=== PATIENT | male | born 1990 | race Caucasian/White ===

== ENCOUNTER 2022-04-03 14:24 | Emergency (ER) | payer MEDICAID ==
[2022-04-03 14:43] VITALS: BP 156/84; PULSE 65; RESP 18; TEMP 98.2
--- NOTE | 2022-04-03 15:28 | US ---
EXAMINATION TYPE: US scrotum with doppler. Grayscale and color Doppler Duplex imaging performed of jacob michael scrotum. DATE OF EXAM: 04/03/2022 COMPARISON: NONE CLINICAL HISTORY: right testicle pain. right testicle pain on and off for years only after intercours e, extreme pain today after sex EXAM MEASUREMENTS: TESTICLES: Right Testicle: 4.4 x 2.8 x 2.4cm cm, heterogeneous appearance lateral to the testicle with no foca l lesion within the serpiginous structure Left Testicle: 4.1 x 2.6 x 2.2 cm EPIDIDYMIS HEAD: Right Epididymis: 1.6 cm, enlarged epi seen from head to tail with increased vascularity Left Epididymis: 1.0 cm, cyst seen =0.9 x 0.9 x 0.9cm Doppler performed to assess for testicular vascularity; Bilateral color flow and waveforms are seen. There is no evidence of testicular torsion. Presence of hydroceles: no Presence of varicoceles: no Testicular echotexture is homogenous and symmetric. IMPRESSION: Consistent with epididymitis on the right. There is no evident intratesticular mass.
[2022-04-03] MEDS ORDERED: LEVOFLOXACIN 500 MG TAB PO STA (17:06)
[2022-04-03] MEDS ORDERED: cefTRIAXone 250 MG VIAL IM STA (17:06)
--- NOTE | 2022-04-03 17:09 | ED ---
General Adult HPI - General Chief complaint: Urogenital Stated complaint: Groin Pain, Swollen testicle Time Seen by Provider: 04/03/22 16:50 Source: patient, RN notes reviewed, old records reviewed Mode of arrival: ambulatory Limitations: no limitations - History of Present Illness Initial comments: Patient is a 31-year-old male who presents emergency Department complaining of right-sided testicular pain. Patient states that the pain started this morning and progressively gotten worse. Improves with elevation and support of the testicle. This has happened previously, however the pain is worse today. Denies any rashes or skin changes. Patient is and has had one sexual partner with no history of STI's. Patient been for 8 years. Denies any urethral discharge. Denies any abdominal pain, fevers, chest pain, shortness breath. No other acute complaints at this time. Presents for further evaluation.Describes the pain is more or less constant with no intermittence. - Related Data Previous Rx's Medication Instructions Recorded levoFLOXacin 500 mg PO DAILY 10 Days #10 tablet 04/03/22 Allergies Allergy/AdvReac Type Severity Reaction Status Date / Time No Known Allergies Allergy Verified 04/03/22 14:41 Review of Systems ROS Statement: Those systems with pertinent positive or pertinent negative responses have been documented in the HPI. Review of Systems: CONST: Denies fever EYES: Denies blurry vision ENT: Denies nasal congestion C/V: Denies Chest pain RESP: Denies shortness of breath GI: Denies abdominal pain : Endorses right testicular pain. SKIN: Denies rash. MSK: Denies joint pain. NEURO: Denies headache ROS Other: All systems not noted in ROS Statement are negative. Past Medical History Past Medical History: No Reported History History of Any Multi-Drug Resistant Organisms: None Reported Past Surgical History: No Surgical Hx Reported Past Psychological History: No Psychological Hx Reported Smoking Status: Current every day smoker Past Alcohol Use History: None Reported Past Drug Use History: None Reported General Exam - General Exam Comments Initial Comments: General: Appears in no acute distress. HEAD: Normal with no signs of head trauma. EYES: EOMI ENT: Hearing grossly intact. RESPIRATORY: Clear breath sounds bilaterally. No wheezes, rales, or rhonchi. C/V: Regular rate and rhythm. S1 and S2 auscultated, no edema, peripheral pulses 2+ and intact throughout ABD: Abd is soft, nontender, nondistended : Testicular exam was relatively unremarkable except for mild tenderness to palpation in the right testicle. No obvious masses palpated. Left testicle exam is unremarkable. No urethral discharge. No rashes. No skin changes. No signs of hernia on exam. EXT: Normal range of motion, no obvious deformity SKIN: No rashes or lesions observed on exposed skin. NEURO: Alert and oriented 4. Limitations: no limitations Course Vital Signs 04/03/22 14:42 Temperature 98.2 F Pulse Rate 65 Respiratory 18 Rate Blood Pressure 156/84 O2 Sat by Pulse 98 Oximetry Medical Decision Making - Medical Decision Making Based on the patient's presentation and physical exam, and concern for epididymitis. Ultrasound was obtained while the patient was waiting in triage. OF THE SCROTUM DID REVEAL FINDINGS CONSISTENT FOR RIGHT-SIDED EPIDIDYMITIS WITH NO MASS AND NO SIGNS OF TORSION.I discussed results with the patient. He expressed understanding. As management does not change based on urinalysis, and low suspicion for STI involvement, we will administer antibiotics the patient can be discharged home with urology follow-up at this time. He was in agreement this plan. He'll be given a dose of IM Rocephin as well as a prescription for levofloxacin outpatient. He'll receive a dose prior to discharge. He was in agreement this plan. Strict return precautions were provided. Patient can use [id number] pain medications for acute pain. Vital signs remained within normal limits and stable throughout his stay. I will provide the patient with a prescription for levofloxacin 500 mg daily for 10 days. I instructed the patient to follow up with their PCP in the next 3 da ys. I provided contact information for follow up with urology. I explained that the patient should return to the emergency department if they experience any worsening symptoms. Strict return precautions were discussed with the patient. The patient expressed understanding of these instructions. I answered all questions that the patient had. The patient was discharged home in good condition with their prescriptions and follow up information. Disposition Clinical Impression: Epididymitis Disposition: HOME SELF-CARE Condition: Good Instructions (If sedation given, give patient instructions): Epididymitis (ED) Prescriptions: levoFLOXacin 500 mg PO DAILY 10 Days #10 tablet Is patient prescribed a controlled substance at d/c from ED?: No Referrals: Sonia Saavedra, [Primary Care Provider] - 1-2 days Spencer Vilchis MD [STAFF PHYSICIAN] - 1-2 days Time of Disposition: 17:05
== END 2022-04-03 17:30 | disposition home or self-care (01) ==
LOC: EC 14:24
DX: N45.1 Epididymitis (principal); F17.200 Nicotine dependence, unspecified, uncomplicated
CPT/HCPCS: 93975; 76870; 99284; 96372; J0696

== ENCOUNTER → 2022-11-08 | Outpatient (CLI) | payer MEDICAID ==
--- NOTE | 2022-11-10 11:27 | MR ---
EXAMINATION TYPE: MR pelvis wo/w con DATE OF EXAM: 11/08/2022 COMPARISON: Ultrasound 04/03/2022 CLINICAL INDICATION:Male, 31 years old with history of D29.30; Epididymis mass with pain. TECHNIQUE: Triplane multisequence imaging was performed of the pelvis. IV Contrast: 7.5 cc Gadavist FINDINGS: Reproductive: Prostate: Unremarkable. Testes/Seminal vesicle's: There is intrinsic high T1 signal diffusely throughout the right seminal ve sicles. Additionally there is serpiginous high T1 signal within the right scrotum which could represe nt hematospermia within a dilated vas deferens. The right seminal vesicles are slightly more dilated compared to the left. The testes have homogenous signal appearance. There is a left paratesticular cy st measuring up to 9 mm as seen on prior ultrasound. Bladder: Unremarkable. Bowel: Unremarkable as visualized. Peritoneum: A small amount of free fluid in the pelvis. Lymph nodes: No evidence of adenopathy. Vasculature: Unremarkable. Musculoskeletal: Bone marrow signal is within normal signal intensity. Abdominal wall/soft tissues: Unremarkable. IMPRESSION: 1. Slight asymmetrically dilated right seminal vesicles with intrinsic high T1 signal suggesting hem atospermia/proteinaceous contents. Correlate for right seminal vesicles outlet obstruction. 2. Heterogenous area which demonstrates intrinsic high T1 signal adjacent to the right testis could be related to #1 and represent a dilated vas deferens. 3. No evidence for intratesticular mass.
== END | disposition home or self-care (01) ==
LOC: RADMRIMAIN 21:18
PROVIDERS: ATTEND Urology
DX: D29.30 Benign neoplasm of unspecified epididymis (principal); N50.89 Other specified disorders of the male genital organs
CPT/HCPCS: 72197; A9585

== ENCOUNTER → 2022-11-10 | Outpatient (CLI) | payer MEDICAID ==
--- NOTE | 2022-11-10 10:52 | US ---
EXAMINATION TYPE: US scrotum with doppler. Grayscale and color Doppler Duplex imaging performed of t alec scrotum. DATE OF EXAM: 11/10/2022 COMPARISON: NONE CLINICAL HISTORY: D29.30 EPIDIDYMAL MASS. pain right EXAM MEASUREMENTS: TESTICLES: Right Testicle: 4.0 x 2.0 x 3.7 cm Left Testicle: 4.8 x 2.2 x 2.8 cm EPIDIDYMIS HEAD: Right Epididymis: .8 cm heterogenous decreased in vascularity since previous exam. Size is somewhat similar Left Epididymis: 1.2 x 1.0 x 1.4 cm Cystic area 1.0 x .8 x .9cm Doppler performed to assess for testicular vascularity; good bilateral color flow and waveforms are s een. There is no evidence of testicular torsion. Presence of hydroceles: No Presence of varicoceles: No IMPRESSION: 1. Left epididymal cyst. 2. The right epididymis appears similar in size compared to the prior examination
== END | disposition home or self-care (01) ==
LOC: RADUSWWP 09:36
PROVIDERS: ATTEND Urology
DX: N50.3 Cyst of epididymis (principal); D29.31 Benign neoplasm of right epididymis
CPT/HCPCS: 76870; 93975